=== PATIENT | male | born 1995 | race Caucasian/White ===

== ENCOUNTER 2020-01-13 06:54 | Outpatient (NON) | payer OTHER, SELFPAY ==
[2020-01-14 13:08] LABS: SARS-CoV-2 RNA PCR Positive
== END 2020-01-13 06:55 ==
LOC: ANHCOVIDDT 06:56
PROVIDERS: PCP Family Medicine; Visit Provider Nurse Practitioner Family
DX: U07.1 COVID-19 (principal)
CPT/HCPCS: 87635; C9803; U0003

== ENCOUNTER 2021-04-14 10:22 | Emergency (ER) | payer OTHER, SELFPAY ==
[2021-04-14 10:31] VITALS: BP 150/73; PULSE 67; RESP 16; TEMP 36.9; O2SAT 100
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
== END 2021-04-14 11:38 | disposition home or self-care (01) ==
PROVIDERS: Emergency Provider Nurse Practitioner Family; PCP Family Medicine
DX: H57.89 Other specified disorders of eye and adnexa (principal); L98.9 Disorder of the skin and subcutaneous tissue, unspecified; Z86.16 Personal history of COVID-19
CPT/HCPCS: 99213; A9270; G0463